=== PATIENT | male | born 1995 | race Caucasian/White ===

== ENCOUNTER 2016-10-01 22:38 | Emergency (ER) | payer OTHER ==
[~2016-10-01] VITALS: Ht 175.3 cm; Wt 72.7 kg
[2016-10-01 22:44] VITALS: TEMP 97.5
[2016-10-01 23:35] VITALS: BP 132/61; PULSE 60
== END 2016-10-01 23:38 | disposition home or self-care (01) ==
LOC: COL.ER 22:38
DX: S61.212A Laceration without foreign body of right middle finger without damage to nail, initial encounter (principal); W25.XXXA Contact with sharp glass, initial encounter

== ENCOUNTER 2016-11-15 12:00 | Emergency (ER) | payer OTHER ==
[~2016-11-15] VITALS: Ht 175.3 cm; Wt 75.0 kg
[2016-11-15 12:00] VITALS: BP 127/80; PULSE 92; TEMP 97.3
== END 2016-11-15 13:50 | disposition home or self-care (01) ==
LOC: COL.ER 12:00
DX: S09.90XA Unspecified injury of head, initial encounter (principal); S01.81XA Laceration without foreign body of other part of head, initial encounter; W10.9XXA Fall (on) (from) unspecified stairs and steps, initial encounter; Y92.414 Local residential or business street as the place of occurrence of the external cause; S00.81XA Abrasion of other part of head, initial encounter; F10.10 Alcohol abuse, uncomplicated; Y90.9 Presence of alcohol in blood, level not specified